=== PATIENT | male | born 1955 | race African-American/Black ===

== ENCOUNTER 2017-04-06 10:04 | Inpatient (IN) | payer MEDICARE ==
[~2017-04-06] VITALS: Ht 177.8 cm; Wt 70.8 kg
[2017-04-06 11:48] LABS: BASOPHILS % 0.4 % (0.0-2.0); EOSINOPHILS % 1.4 % (0.0-5.0); HEMATOCRIT. 45.7 % (42.0-52.0); HEMOGLOBIN. 15.8 g/dL (14.0-18.0); LYMPHOCYTES % 48.2 % (20.0-50.0); MEAN CORPUSCULAR VOLUME 83.8 fL (80.0-94.0); MEAN PLATELET VOLUME 9.5 fl (7.4-10.4); MONOCYTES % 9.6 % (2.0-8.0); NEUTROPHILS % 40.4 % (40.0-76.0); PLATELET 153 x1000/uL (130-400); RED BLOOD CELL COUNT 5.46 mill/uL (4.7-6.1); RED CELL DISTRIBUTION WIDTH 14.3 % (11.6-14.6)
[2017-04-06 11:58] LABS: BG BASE EXCESS 0.8 mmol/L (-2.0-2.0); BG CARBOXYHEMOGLOBIN 0.8 % (0.5-1.5); BG DEOXYHEMOGLOBIN 3.2 % (0.0-5.0); BG FRACTION INSPIRED OXYGEN 21; BG HCO3 ACT 24.5 mmol/L (22.0-26.0); BG METHEMOGLOBIN 0.5 % (0.0-1.5); BG OXYGEN SATURATION 96.8 % (92.0-98.5); BG OXYHEMOGLOBIN 95.5 % (94.0-97.0); BG PCO2 36.8 mmHg (35.0-45.0); BG PH 7.442 (7.350-7.450); BG PO2 84.2 mmHg (75.0-100.0); BG SAMPLE SITE RIGHT RADIAL; BG TOTAL HEMOGLOBIN 15.6 g/dL (12.0-18.0); BG VENT MODE ROOM AIR
[2017-04-06 12:03] LABS: CARBON DIOXIDE 28 mEq/L (21-32); CHLORIDE 106 mEq/L (98-107); ETHANOL BLOOD < 10 mg/dL; TROPONIN I < 0.02 ng/mL (0.00-0.04)
[2017-04-06] MEDS ORDERED: SODIUM CHLORIDE 0.9% 10ML VIAL ONE (15:07)
[2017-04-06] MEDS ORDERED: IOHEXOL-300 100 ML BOTTLE ONE (15:07)
[2017-04-06 17:12] LABS: CLARITY URINE CLEAR (CLEAR); COLOR URINE YELLOW (YELLOW); GLUCOSE URINE NEGATIVE (NEGATIVE); KETONES URINE NEGATIVE (NEGATIVE); LEUKOCYTE ESTERASE URINE NEGATIVE (NEGATIVE); NITRITE URINE NEGATIVE (NEGATIVE); OCCULT BLOOD URINE NEGATIVE (NEGATIVE); PROTEIN URINE NEGATIVE (NEGATIVE); SPECIFIC GRAVITY URINE >1.040 (1.005-1.030)
[2017-04-06 17:26] LABS: *AMPHETAMINES SCREEN URINE NEGATIVE (NEGATIVE); *BARBITURATES SCREEN URINE NEGATIVE (NEGATIVE); *BENZODIAZEPINES SCREEN URINE NEGATIVE (NEGATIVE); *COCAINE SCREEN URINE NEGATIVE (NEGATIVE); CANNABINOID URINE SCREEN NEGATIVE (NEGATIVE); METHADONE URINE SCREEN NEGATIVE (NEGATIVE); OPIATES URINE SCREEN NEGATIVE (NEGATIVE); PHENCYCLIDINE URINE SCREEN NEGATIVE (NEGATIVE)
[2017-04-06] MEDS ORDERED: LORAZEPAM 2MG/ML CPJ IV PRN (18:45)
[2017-04-06] MEDS ORDERED: MAGNESIUM/ALUMINUM HYDROXIDE/SIMETHICONE 30ML UDC PO PRN (18:45)
[2017-04-06] MEDS ORDERED: ONDANSETRON HCL 4MG/2ML VIAL IV PRN (18:45)
[2017-04-06] MEDS ORDERED: DIPHENHYDRAMINE 50MG/ML VIAL IV PRN (18:45)
[2017-04-06] MEDS ORDERED: CLONIDINE 0.1MG TABLET PO PRN (18:45)
[2017-04-06] MEDS ORDERED: ACETAMINOPHEN 325MG TABLET PO PRN (18:45)
[2017-04-06] MEDS ORDERED: PANTOPRAZOLE SODIUM 40 MG/VIAL IV SCH (18:45)
[2017-04-06 21:00] VITALS: BP 179/108
[2017-04-06 21:50] VITALS: BP 179/108
[2017-04-06] MEDS ORDERED: MAGNESIUM HYDROXIDE 400MG/5ML 30ML UDC PO PRN (22:30)
[2017-04-06] MEDS ORDERED: BISACODYL 10MG SUPP PR NR (22:38)
[2017-04-06] MEDS: AMLODIPINE 5MG TABLET PO SCH (23:32)
[2017-04-07] VITALS: BP 137/92
[2017-04-07 04:00] VITALS: BP 121/75
[2017-04-07 06:01] LABS: CARBON DIOXIDE 27 mEq/L (21-32); CHLORIDE 107 mEq/L (98-107)
[2017-04-07 07:01] LABS: BASOPHILS % 0.5 % (0.0-2.0); HEMATOCRIT. 41.2 % (42.0-52.0); HEMOGLOBIN. 14.1 g/dL (14.0-18.0); LYMPHOCYTES % 47.1 % (20.0-50.0); MEAN CORPUSCULAR HEMOGLOBIN 28.1 pg (28.0-32.0); MEAN CORPUSCULAR VOLUME 82.5 fL (80.0-94.0); MEAN PLATELET VOLUME 9.4 fl (7.4-10.4); MONOCYTES % 11.5 % (2.0-8.0); NEUTROPHILS % 38.9 % (40.0-76.0); PLATELET 166 x1000/uL (130-400); RED CELL DISTRIBUTION WIDTH 14.3 % (11.6-14.6)
[2017-04-07 08:00] VITALS: BP 115/80
[2017-04-07] MEDS: AMLODIPINE 5MG TABLET PO SCH ×2 (09:28→20:33)
[2017-04-07] MEDS: SODIUM CHLORIDE 0.9% 1,000 ML IV SCH (14:29)
[2017-04-07 16:00] VITALS: BP 146/91
[2017-04-07] MEDS ORDERED: MAGNESIUM CITRATE 300ML SOLUTION PO NR (17:00)
[2017-04-07 20:00] VITALS: BP 139/97
[2017-04-07 20:06] LABS: HEMATOCRIT 44.3 % (42.0-52.0)
[2017-04-07] MEDS: PANTOPRAZOLE SODIUM 40 MG/VIAL IV SCH (20:33)
[2017-04-08] VITALS: BP 134/95
[2017-04-08 00:57] LABS: HEMATOCRIT 43.2 % (42.0-52.0); HEMOGLOBIN 14.8 g/dL (14.0-18.0)
[2017-04-08] MEDS: SODIUM CHLORIDE 0.9% 1,000 ML IV SCH ×3 (03:20→20:41)
[2017-04-08 04:00] VITALS: BP 124/83
[2017-04-08 05:33] LABS: HEMATOCRIT 42.6 % (42.0-52.0); HEMOGLOBIN 14.2 g/dL (14.0-18.0); MEAN CORPUSCULAR HEMOGLOBIN 27.8 pg (28.0-32.0); MEAN CORPUSCULAR VOLUME 83.4 fL (80.0-94.0); PLATELET 164 x1000/uL (130-400); RED CELL DISTRIBUTION WIDTH 14.4 % (11.6-14.6)
[2017-04-08 08:00] VITALS: BP 112/75
[2017-04-08] MEDS: PANTOPRAZOLE SODIUM 40 MG/VIAL IV SCH ×2 (09:46→21:10)
[2017-04-08] MEDS: AMLODIPINE 5MG TABLET PO SCH ×2 (09:46→21:11)
[2017-04-08 12:00] VITALS: BP 120/84
[2017-04-08] MEDS ORDERED: SORBITOL 70% SOLN 30ML PO NR (12:30)
[2017-04-08] MEDS: SENNOSIDES/DOCUSATE SOD 8.6/50MG TABLET PO SCH (13:45)
[2017-04-08 16:00] VITALS: BP 129/84
[2017-04-08 20:00] VITALS: BP 127/80
[2017-04-09] VITALS (7 sets, daily range): BP systolic 127–151; BP diastolic 78–101
[2017-04-09] MEDS: SODIUM CHLORIDE 0.9% 1,000 ML IV SCH ×2 (06:21→16:45)
[2017-04-09 06:35] LABS: CARBON DIOXIDE 25 mEq/L (21-32); CHLORIDE 105 mEq/L (98-107)
[2017-04-09 06:46] LABS: BASOPHILS % 0.3 % (0.0-2.0); EOSINOPHILS % 2.2 % (0.0-5.0); HEMATOCRIT. 43.9 % (42.0-52.0); LYMPHOCYTES % 36.2 % (20.0-50.0); MEAN CORPUSCULAR HEMOGLOBIN 28.4 pg (28.0-32.0); MEAN PLATELET VOLUME 9.2 fl (7.4-10.4); MONOCYTES % 11.9 % (2.0-8.0); NEUTROPHILS % 49.4 % (40.0-76.0); PLATELET 167 x1000/uL (130-400); RED BLOOD CELL COUNT 5.28 mill/uL (4.7-6.1); RED CELL DISTRIBUTION WIDTH 14.4 % (11.6-14.6)
[2017-04-09] MEDS: PANTOPRAZOLE SODIUM 40 MG/VIAL IV SCH (08:53)
[2017-04-09] MEDS: AMLODIPINE 5MG TABLET PO SCH (08:54)
[2017-04-09] MEDS: SENNOSIDES/DOCUSATE SOD 8.6/50MG TABLET PO SCH (08:54)
[2017-04-09] MEDS ORDERED: POTASSIUM CHLORIDE 20MEQ TABLET SR PO NR (14:15)
[2017-04-09] MEDS ORDERED: MAGNESIUM 2 G PREMIX 50 ML IV ONE (14:15)
[2017-04-09] MEDS: ATENOLOL 25MG TABLET PO SCH ×2 (14:56→22:13)
[2017-04-09 16:14] LABS: T4 FREE 1.12 ng/dL (0.76-1.46)
[2017-04-09] MEDS: MEGESTROL ACETATE 400 MG/10 ML UDC PO SCH (16:44)
[2017-04-10] VITALS: BP 146/95
[2017-04-10 04:00] VITALS: BP 121/80
[2017-04-10] MEDS: SODIUM CHLORIDE 0.9% 1,000 ML IV SCH ×3 (07:11→22:41)
[2017-04-10] MEDS: MEGESTROL ACETATE 400 MG/10 ML UDC PO SCH ×2 (08:30→16:24)
[2017-04-10] MEDS: ATENOLOL 25MG TABLET PO SCH ×2 (08:30→20:50)
[2017-04-10] MEDS: SENNOSIDES/DOCUSATE SOD 8.6/50MG TABLET PO SCH (08:30)
[2017-04-10 08:56] VITALS: BP 142/92
[2017-04-10 20:00] VITALS: BP 143/87
[2017-04-11] VITALS: BP 151/94
[2017-04-11 04:00] VITALS: BP 139/90
[2017-04-11 08:00] VITALS: BP 116/73
[2017-04-11] MEDS: ATENOLOL 25MG TABLET PO SCH (08:33)
[2017-04-11] MEDS: SENNOSIDES/DOCUSATE SOD 8.6/50MG TABLET PO SCH (08:39)
[2017-04-11] MEDS: MEGESTROL ACETATE 400 MG/10 ML UDC PO SCH ×2 (08:39→17:56)
[2017-04-11 12:00] VITALS: BP 137/88
[2017-04-11] MEDS: SODIUM CHLORIDE 0.9% 1,000 ML IV SCH (12:16)
[2017-04-11 18:35] VITALS: BP 137/88
[2017-04-12] MEDS ORDERED: ATENOLOL 25MG TABLET PO SCH (09:00)
== END 2017-04-11 20:22 | disposition home or self-care (01) | DRG 377 ==
LOC: ER 11:50 → 5WST 16:55 → ENRESERV 20:37
PROVIDERS: ADMIT Internal Medicine; ATTEND Internal Medicine
DX: K92.2 Gastrointestinal hemorrhage, unspecified (principal); G93.40 Encephalopathy, unspecified; I47.1 Supraventricular tachycardia; I49.9 Cardiac arrhythmia, unspecified; K59.00 Constipation, unspecified; R63.4 Abnormal weight loss; R63.0 Anorexia; D72.819 Decreased white blood cell count, unspecified; F32.9 Major depressive disorder, single episode, unspecified; F20.9 Schizophrenia, unspecified; F99 Mental disorder, not otherwise specified; I10 Essential (primary) hypertension; F17.200 Nicotine dependence, unspecified, uncomplicated; Z79.899 Other long term (current) drug therapy; Z82.49 Family history of ischemic heart disease and other diseases of the circulatory system; Z68.22 Body mass index [BMI] 22.0-22.9, adult
CPT/HCPCS: 36415; 36600; 70450; 71010; 74177; 80048; 80053; 80305; 81003; 82270; 82375; 82805; 83735; 84439; 84443; 84484; 85014; 85018; 85025; 85027; 86850; 86900; 93005; 99291; A4216; C9113; G0482; J7030; Q9967